=== PATIENT | male | born 1960 | race Caucasian/White ===

== ENCOUNTER 2019-09-05 06:55 | Day surgery (SDC) | payer BC ==
[~2019-09-05] VITALS: Ht 195.6 cm; Wt 94.2 kg
== END 2019-09-05 09:35 | disposition home or self-care (01) ==
LOC: ORSCSDS 06:55
PROVIDERS: Student in an Organized Health Care Education/Training Program
PROC: 0DBH8ZX Excision of Cecum, Via Natural or Artificial Opening Endoscopic, Diagnostic (ICD-10-PCS; principal; 2019-09-05 08:00)
PROC: 0DBK8ZX Excision of Ascending Colon, Via Natural or Artificial Opening Endoscopic, Diagnostic (ICD-10-PCS; principal; 2019-09-05 08:00)
PROC: 0DBN8ZX Excision of Sigmoid Colon, Via Natural or Artificial Opening Endoscopic, Diagnostic (ICD-10-PCS; principal; 2019-09-05 08:00)
PROC: 0DBL8ZX Excision of Transverse Colon, Via Natural or Artificial Opening Endoscopic, Diagnostic (ICD-10-PCS; principal; 2019-09-05 08:00)
PROC: 0DBM8ZX Excision of Descending Colon, Via Natural or Artificial Opening Endoscopic, Diagnostic (ICD-10-PCS; principal; 2019-09-05 08:00)
DX: Z12.11 Encounter for screening for malignant neoplasm of colon (principal); D12.5 Benign neoplasm of sigmoid colon; D12.2 Benign neoplasm of ascending colon; D12.0 Benign neoplasm of cecum; D12.3 Benign neoplasm of transverse colon; D12.4 Benign neoplasm of descending colon; K57.30 Diverticulosis of large intestine without perforation or abscess without bleeding; K64.8 Other hemorrhoids; F17.210 Nicotine dependence, cigarettes, uncomplicated
CPT/HCPCS: 88305; J0461; J2405; J2704; J7120

== ENCOUNTER 2020-02-02 13:44 | Observation (INO) | payer BC ==
[~2020-02-02] VITALS: Ht 190.5 cm; Wt 94.8 kg
[2020-02-02 15:10] LABS: BASOPHILS ABSOLUTE AUTO 0.02 K/mm3 (0.00-0.23); BASOPHILS PERCENT AUTO 0 % (0-2); EOSINOPHILS ABSOLUTE AUTO 0.06 K/mm3 (0.00-0.68); EOSINOPHILS PERCENT AUTO 1 % (0-6); Hematocrit 50.8 % (37.0-53.0); Hemoglobin 16.6 g/dL (13.5-17.5); IMMATURE GRAN ABSOLUTE AUTO 0.03 K/mm3 (0.00-0.10); IMMATURE GRAN PERCENT AUTO 0 % (0-1); LYMPHOCYTES PERCENT AUTO 9 % (21-46); MONOCYTES ABSOLUTE AUTO 0.48 K/mm3 (0.16-1.47); MONOCYTES PERCENT AUTO 5 % (4-13); Mean Corpuscular HGB 32.2 pg (26.0-34.0); Mean Corpuscular HGB Conc 32.7 g/dL (31.5-36.5); Mean Corpuscular Volume 99 fL (80-100); Mean Platelet Volume 8.3 fL (9.1-12.4); NEUTROPHILS ABSOLUTE AUTO 8.26 K/mm3 (1.96-9.15); NEUTROPHILS PERCENT AUTO 85 % (41-73); Platelet Count 354 K/mm3 (150-400); RDW Standard Deviation 47.7 fL (35.1-46.3); Red Blood Cell Count 5.15 M/mm3 (4.30-5.90); White Blood Cell Count 9.75 K/mm3 (4.00-11.30)
[2020-02-02 15:25] LABS: International Normalized Ratio 1.01; Prothrombin Time Results 10.8 Sec (9.7-11.5)
[2020-02-02 15:28] LABS: Alanine Aminotransfer (ALT/SGP 42 U/L (12-78); Albumin, Blood 4.2 g/dL (3.4-5.0); Albumin/Globulin Ratio 1.3 (0.8-1.8); Alk Phos 115 U/L (50-136); Anion Gap 8 mmol/L (6-16); Aspartate Aminotrans (AST/SGOT 22 U/L (12-37); Bilirubin, Total 0.5 mg/dL (0.1-1.0); Blood Urea Nitrogen 12 mg/dL (8-24); CO2, Blood 23 mmol/L (21-32); Calcium, Blood 9.4 mg/dL (8.5-10.1); Chloride, Blood 106 mmol/L (98-108); Creatinine, Blood 0.71 mg/dL (0.60-1.20); Globulin, Blood 3.3 g/dL (2.2-4.0); Glomerular Filtration Rate >60 (60-); Glucose, Blood 129 mg/dL (70-99); Potassium, Blood 4.1 mmol/L (3.5-5.5); Sodium, Blood 137 mmol/L (136-145); Total Protein, Blood 7.5 g/dL (6.4-8.2)
[2020-02-02] MEDS ORDERED: ATORVASTATIN CA20 MG PO (16:51)
--- NOTE | 2020-02-03 05:00 | NUR ---
SHIFT SUMMARY ASSUMED CARE OF PT AT 1900. PT IS A/OX4. PT IS EXTREMLY DIZZY. PT HAD HIS EYES CLOSED DURING ASSESSMENT DUE TO THIS. HEART SOUNDS REGULAR, LUNG SOUNDS CLEAR. PT USED URINAL DURING THE NIGHT. NO ACUTE EVENTS DURING THE NIGHT. PT SLEPT T/O THE NIGHT. CALL LIGHT IN REACH, BED IN LOWEST POSTION.
[2020-02-03] MEDS ORDERED: MECL25 PO (14:01)
[2020-02-03] MEDS ORDERED: PRED20 PO (14:04)
--- NOTE | 2020-02-03 16:33 | NUR ---
PT DISCHARGED HOME VIA WHEELCHAIR AND BELONGINGS/ AT SIDE. PT IV WAS DC'D AND WNL, PT MADE NO C/O PAIN OR SOB. PT CONT. TO EXP DIZZINESS AND SENSITIVETY TO LIGHT. PT ENCOURAGED TO FU WITH EFM AND MEDICATE PER DC MEDICATIONS.
== END 2020-02-03 16:00 | disposition home or self-care (01) ==
LOC: ER 13:44 → MEDS 13:45 → ER 20:16 → MEDS 20:22
PROVIDERS: Physician Assistant; ADMIT Family Medicine
DX: H81.02 Meniere's disease, left ear (principal); E78.5 Hyperlipidemia, unspecified; Z88.0 Allergy status to penicillin; F17.200 Nicotine dependence, unspecified, uncomplicated; Z79.899 Other long term (current) drug therapy
CPT/HCPCS: 36415; 70450; 70553; 80053; 85025; 85610; 93005; 93010; A9579; J0780; J2405

== ENCOUNTER 2024-04-06 11:07 | Day surgery (SDC) | payer OTHER ==
[~2024-04-06] VITALS: Ht 190.5 cm; Wt 93.7 kg
[~2024-04-06 11:07] MED LIST: ATORVASTATIN CA20 MG PO; Lactated Ringer's 1,000 ML IV ONE; MECL25 PO; PRED20 PO; propofoL 50 ML IV ONE
[2024-04-06] MEDS ORDERED: ATOR20 (11:38)
[2024-04-06] MEDS ORDERED: FINA5 (11:38)
[2024-04-06] MEDS ORDERED: Flomax0.4 MG (11:39)
[2024-04-06] MEDS ORDERED: Lactated Ringer's 1,000 ML IV ONE (12:58)
--- NOTE | 2024-04-06 12:58 | NUR ---
04/06/24 0318 Kari Cantu PT. DENIES ANY PAIN EXCEPT WHERE THE IV WAS STARTED. PT. GIVEN A WARM PACK TO PLACE ON TOP. IV SITE LOOKS OK.
[2024-04-06 14:39] VITALS: BP 122/80
== END 2024-04-06 14:30 | disposition home or self-care (01) ==
LOC: ORSCSDS 11:07
PROVIDERS: Internal Medicine Gastroenterology
PROC: 0DBL8ZX Excision of Transverse Colon, Via Natural or Artificial Opening Endoscopic, Diagnostic (ICD-10-PCS; principal; 2024-04-06 12:30)
PROC: 0DBH8ZX Excision of Cecum, Via Natural or Artificial Opening Endoscopic, Diagnostic (ICD-10-PCS; principal; 2024-04-06 12:30)
DX: Z12.11 Encounter for screening for malignant neoplasm of colon (principal); Z86.0100 Personal history of colon polyps, unspecified; D12.3 Benign neoplasm of transverse colon; D12.0 Benign neoplasm of cecum; K57.30 Diverticulosis of large intestine without perforation or abscess without bleeding; Z86.0101 Personal history of adenomatous and serrated colon polyps; E78.5 Hyperlipidemia, unspecified; F17.210 Nicotine dependence, cigarettes, uncomplicated; Z79.899 Other long term (current) drug therapy
CPT/HCPCS: 88305; J2704; J7120